=== PATIENT | female | born 1945 ===

== ENCOUNTER 2018-05-04 08:37 | Outpatient (CLI) | payer OTHER | END 2018-05-04 08:40 | disposition home or self-care (01) | LOC: RAD 08:37 | DX: D12.8 Benign neoplasm of rectum (principal); D37.5 Neoplasm of uncertain behavior of rectum; C18.6 Malignant neoplasm of descending colon; R59.0 Localized enlarged lymph nodes ==

== ENCOUNTER 2018-05-10 07:16 | Day surgery (SDC) | payer OTHER | END 2018-05-10 12:14 | disposition home or self-care (01) | LOC: AMB-ENDOS 07:16 | DX: D12.0 Benign neoplasm of cecum (principal); D12.4 Benign neoplasm of descending colon; D12.5 Benign neoplasm of sigmoid colon; D12.3 Benign neoplasm of transverse colon; D12.8 Benign neoplasm of rectum ==

== ENCOUNTER 2018-06-03 13:45 | Inpatient (IN) | payer OTHER ==
[~2018-06-03] VITALS: Ht 160 cm; Wt 71.7 kg
[2018-06-19] MEDS ORDERED: NEURONTIN300 MG PO (12:05)
[2018-06-19] MEDS ORDERED: ACETAMINOPHEN500 M1 PO (12:05)
[2018-06-19] MEDS ORDERED: INTESTINEX680 M1 PO (12:06)
== END 2018-06-19 14:58 | disposition home or self-care (01) | DRG 331 ==
LOC: SURG 06-15 07:20 → O/R 06-15 07:20 → SURG 06-15 16:54
PROVIDERS: Surgery
PROC: 07TC4ZZ Resection of Pelvis Lymphatic, Percutaneous Endoscopic Approach (ICD-10-PCS; 2018-06-15)
PROC: 0DTP4ZZ Resection of Rectum, Percutaneous Endoscopic Approach (ICD-10-PCS; 2018-06-15)
PROC: 0DJD8ZZ Inspection of Lower Intestinal Tract, Via Natural or Artificial Opening Endoscopic (ICD-10-PCS; 2018-06-15)
PROC: 0DTN4ZZ Resection of Sigmoid Colon, Percutaneous Endoscopic Approach (ICD-10-PCS; principal; 2018-06-15 14:15)
DX: C19 Malignant neoplasm of rectosigmoid junction (principal); R59.0 Localized enlarged lymph nodes

== ENCOUNTER 2019-05-30 08:08 | Day surgery (SDC) | payer OTHER ==
[~2019-05-30 08:08] MED LIST: ACETAMINOPHEN500 M1 PO; INTESTINEX680 M1 PO; NEURONTIN300 MG PO
== END 2019-05-30 12:30 | disposition home or self-care (01) ==
LOC: AMB-ENDOS 08:08
DX: D12.4 Benign neoplasm of descending colon (principal); D12.8 Benign neoplasm of rectum

== ENCOUNTER 2019-12-01 10:08 | Emergency (ER) | payer OTHER ==
[~2019-12-01] VITALS: Ht 160 cm; Wt 72.6 kg
== END 2019-12-01 14:06 | disposition home or self-care (01) ==
LOC: ER 10:08 → EDSTATUS 12-20 10:08
DX: R10.822 Left upper quadrant rebound abdominal tenderness (principal)

== ENCOUNTER 2020-06-11 07:50 | Day surgery (SDC) | payer OTHER | END 2020-06-11 10:40 | disposition home or self-care (01) | LOC: AMB-ENDOS 07:50 | PROVIDERS: ATTEND Surgery | DX: D12.2 Benign neoplasm of ascending colon (principal); D12.5 Benign neoplasm of sigmoid colon; Z20.828 Contact with and (suspected) exposure to other viral communicable diseases ==